=== PATIENT | male | born 1940 ===

== ENCOUNTER 2018-08-16 12:06 | Inpatient (IN) | payer MEDICARE ==
[2018-08-16 12:08] VITALS: BMI 27.4
--- NOTE | 2018-08-16 12:21 | ED PDOC ---
Arrival/HPI - General Chief Complaint: Pacemaker Problem Time Seen by Provider: 08/16/18 12:07 Historian: Patient - History of Present Illness Narrative History of Present Illness (Text): 08/16/18 12:19 Morris Brooks is a 78 year old male, whose past medical history includes hypertension, diabetes, and pacemaker, who presents to the Emergency department accompanied by relative for pacemaker issues. As per patient, he went to his regularly scheduled pacemaker check earlier today and had his pacemaker interrogated, which showed pacemaker is at end-life battery. Patient was advised by his PMD to come to the Emergency department for hospital admission for pacemaker battery change and because of his symptoms of shortness of breathe on exertion. Patient does complain of some shortness of breath/dyspnea on exertion. Patient denies any fever, chills, chest pain, nausea, vomiting, diarrhea, urinary symptoms, back pain, neck pain, headache, dizziness, or any other complaints. PMD: Dr. Morris Perla [facility] Director: Dr. Yulisa Perla Symptom Onset: Gradual Symptom Course: Unchanged Activities at Onset: Light Context: Home Past Medical History - Provider Review Nursing Documentation Reviewed: Yes - Infectious Disease Hx of Infectious Diseases: None - Cardiac Hx Cardiac Arrhythmia: Yes Hx Pacemaker: Yes ([employer]) Other/Comment: Cardiac Cath with stents - Neurological Hx Paralysis: No Hx Transient Ischemic Attacks (TIA): Yes - Hematological/Oncological Hx Blood Transfusions: No Hx Blood Transfusion Reaction: No - Musculoskeletal/Rheumatological Hx Musculoskeletal Disorders: No - Psychiatric Hx Emotional Abuse: No Hx Physical Abuse: No Hx Substance Use: No - Surgical History Hx Cardiac Catheterization: Yes Other/Comment: Pacemaker - Anesthesia Hx Anesthesia Reactions: No Hx Malignant Hyperthermia: No - Suicidal Assessment Feels Threatened In Home Enviroment: No Family/Social History - Physician Review Nursing Documentation Reviewed: Yes Family/Social History: Unknown Family HX Smoking Status: Never Smoked Hx Alcohol Use: No Hx Substance Use: No Allergies/Home Meds Allergies/Adverse Reactions: Allergies No Known Allergies Allergy (Verified 05/11/12 12:14) Home Medications: Home Meds Medication Instructions Recorded Confirmed Aspirin [Ecotrin] 325 mg PO DAILY 05/11/12 05/11/12 Enalapril Maleate [Enalapril] 20 mg PO DAILY 05/11/12 05/11/12 Gemfibrozil 600 mg PO BID 05/11/12 05/11/12 Glyburide 5 mg PO BID 05/11/12 05/11/12 Metformin HCl [Metformin] 1,000 mg PO BID 05/11/12 05/11/12 Metoprolol Tartrate 50 mg PO BID 05/11/12 05/11/12 SITagliptin [Januvia] 50 mg PO DAILY 05/11/12 05/11/12 Review of Systems - Physician Review All systems were reviewed & negative as marked: Yes - Review of Systems Constitutional: Normal. absent: Fevers Eyes: Normal ENT: Normal Respiratory: SOB. absent: Cough Cardiovascular: [place]. absent: Chest Pain Gastrointestinal: Normal. absent: Abdominal Pain, Diarrhea, Nausea, Vomiting Genitourinary Male: Normal. absent: Dysuria, Frequency, Hematuria, Urinary Output Changes Musculoskeletal: Normal. absent: Back Pain, Neck Pain Skin: Normal. absent: Rash Neurological: Normal. absent: Headache Endocrine: Normal Hemo/Lymphatic: Normal Psychiatric: Normal Physical Exam Vital Signs Reviewed: Yes Vital Signs Temp Pulse Resp BP Pulse Ox 08/16/18 12:16 97.7 F 65 19 141/82 99 Temperature: Afebrile Blood Pressure: Normal Pulse: Regular Respiratory Rate: Normal Appearance: Positive for: Well-Appearing, Non-Toxic, Comfortable Pain Distress: None Mental Status: Positive for: Alert and Oriented X 3 - Systems Exam Head: Present: Atraumatic, Normocephalic Pupils: Present: PERRL Extroacular Muscles: Present: EOMI Conjunctiva: Present: Normal Mouth: Present: Moist Mucous Membranes Neck: Present: Normal Range of Motion Respiratory/Chest: Present: Clear to Auscultation, Good Air Exchange. No: Respiratory Distress, Accessory Muscle Use Cardiovascular: Present: Regular Rate and Rhythm, Normal S1, S2. No: Murmurs Abdomen: No: Tenderness, Distention, Peritoneal Signs Back: Present: Normal Inspection Upper Extremity: Present: Normal Inspection. No: Cyanosis, Edema Lower Extremity: Present: Normal Inspection. No: Edema Neurological: Present: GCS=15, CN II-XII Intact, Speech Normal Skin: Present: Warm, Dry, Normal Color. No: Rashes Psychiatric: Present: Alert, Oriented x 3, Normal Insight, Normal Concentration Medical Decision Making ED Course and Treatment: 08/16/18 12:19 Impression: 78 year old male sent in for hospital admission for change of pacemaker battery and Dyspnea of exertion Plan: -- EKG -- Chest X-ray -- Labs, cardiac enzymes, BNP -- Reassess and disposition Prior Visits: Notes and results from previous visits were reviewed. Progress Notes: Reviewed EKG, 100% paced at 65 bpm. 08/16/2018 12:49 Chest X-ray IMPRESSION: No active disease. Dictator: Ishan Flowers MD 08/16/18 13:49 [employer] Identification card information: Morris [address] [place] [id number] Implant Date: Serial # Model # 25 NOV 2008 [id number] 11 FEB 2003 [id number] FEB 2003 [id number] Back of card: I have an Elma JAMESON pacemaker implanted. For medical questions or emergency call: Everardo Sylvester MD [phone] 08/16/18 16:48 Discussed the case with Dr. Bradford who states that there is no stat intervention at this time but he will review the interrogation report. I discussed the report with Caleb from [employer] who states it's reporting recommended replacement. 2.64 volts. 100% paced. He recommends replacement. I discussed plan with Dr. Carey. Also, patient's daughter states that at times he says he see people that are not there. Patient denies SI or HI. Denies Delusions or hallucinations at this time. Consult placed for Dr. Brennan. - Lab Interpretations I have reviewed the lab results: Yes - EKG Interpretation Interpreted by ED Physician: Yes Type: 12 lead EKG - Scribe Statement The provider has reviewed the documentation as recorded by the Scribe Sakshi Arias Provider Scribe Attestation: All medical record entries made by the Scribe were at my direction and personally dictated by me. I have reviewed the chart and agree that the record accurately reflects my personal performance of the history, physical exam, medical decision making, and the department course for this patient. I have also personally directed, reviewed, and agree with the discharge instructions and disposition. Disposition/Present on Arrival - Present on Arrival Any Indicators Present on Arrival: No History of DVT/PE: No History of Uncontrolled Diabetes: No Urinary Catheter: No History of Decub. Ulcer: No History Surgical Site Infection Following: None - Disposition Have Diagnosis and Disposition been Completed?: Yes Diagnosis: Pacemaker malfunction, Dyspnea on exertion Disposition Time: 13:24 Patient Plan: Observation Condition: FAIR
--- NOTE | 2018-08-16 12:53 | RAD ---
Date of service: 08/16/2018 HISTORY: PACEMAKER CHECK COMPARISON: No prior. FINDINGS: LUNGS: No active pulmonary disease. PLEURA: No significant pleural effusion identified, no pneumothorax apparent. CARDIOVASCULAR: No aortic atherosclerotic calcification present. Normal cardiac size. No pulmonary vascular congestion. OSSEOUS STRUCTURES: No significant abnormalities. VISUALIZED UPPER ABDOMEN: Normal. OTHER FINDINGS: Dual lead pacemaker IMPRESSION: No active disease.
[2018-08-16 12:54] LABS: BASO # 0.06 K/mm3 (0.0-2.0); BASO % 1.5 % (0.0-3.0); EOS # 0.1 (0.0-0.7); EOS % 2.9 % (1.5-5.0); GRAN # 2.48 (1.4-6.5); GRAN % 60.2 % (50.0-68.0); HEMOGLOBIN 10.9 g/dL (14.0-18.0); LYMPH # 1.1 (1.2-3.4); LYMPH % 26.2 % (22.0-35.0); MEAN CELL VOLUME 96.4 fl (80.0-105.0); MEAN CORPUSCULAR HEMOGLOBIN 30.4 pg (25.0-35.0); MEAN CORPUSCULAR HGB CONC 31.5 g/dl (31.0-37.0); MEAN PLATELET VOLUME 12.9 fl (7.0-11.0); MONO # 0.4 (0.1-0.6); MONO % 9.2 % (1.0-6.0); RBC 3.59 10^6/uL (3.5-6.1); RED CELL DISTRIBUTION WIDTH 13.9 % (11.5-14.5); WHITE BLOOD COUNT 4.1 10^3/uL (4.5-11.0)
[2018-08-16 12:57] LABS: INR 1.03; PARTIAL THROMBOPLASTIN TIME 28.7 Seconds (25.1-36.5); PROTHROMBIN TIME 11.9 SECONDS (9.4-12.5)
[2018-08-16 13:05] LABS: ALB/GLOB RATIO 1.1 (1.1-1.8); CALCIUM 9.2 mg/dL (8.4-10.5)
[2018-08-16 13:16] LABS: TROPONIN I 0.02 ng/mL
[2018-08-16 13:29] LABS: CK-MB 2.6 ng/mL (0.0-3.6)
--- NOTE | 2018-08-16 15:24 | CARD ---
APPROVED REPORT Date of service: 08/16/2018 EKG Measurement Heart [id number] <Conclusion> Electronic ventricular pacemaker
--- NOTE | 2018-08-16 18:40 | HP ---
DATE OF EXAM: 08/16/2018 HISTORY OF PRESENT ILLNESS: I was called down to the emergency room to admit this young man to the hospital. He is having a pacemaker problem. He is a 78-year-old white male with past medical history that is hypertension, diabetes, and pacemaker, who was accompanied by relative with pacemaker issues. They said it is at the end of the life of his pacemaker and probably needed to be changed. He is having shortness of breath on exertion. Also little bit swollen. His doctor has not come to the hospital. PAST MEDICAL HISTORY: Permanent pacemaker, cardiac cath with stents, and TIAs in the past. FAMILY HISTORY: Unknown family history. SOCIAL HISTORY: Never smoked. No alcohol. No drugs. ALLERGIES: NO KNOWN DRUG ALLERGIES. MEDICATIONS: He is on Ecotrin, enalapril, gemfibrozil, glyburide, metformin, metoprolol, and Januvia. REVIEW OF SYSTEMS: No fevers. No acute vision or hearing changes. There is shortness of breath, but no cough. There is dyspnea on exertion, but no chest pain. No abdominal pain. No nausea, vomiting, constipation, or diarrhea. No problems urinating. No back pain, neck pain or skin rashes appreciated. He does not think he has any issues of the skin. No headache. He is alert and oriented. He has no anxiety. PHYSICAL EXAMINATION: VITAL SIGNS: He has 97.7 temp, 65 pulse, 19 respiratory rate, 141/82 blood pressure, and 99% O2 sat. GENERAL: He is a well-appearing, nontoxic, comfortable, alert and oriented x3 in the emergency room [place] a [place]. HEENT: His head is atraumatic and normocephalic. Extraocular muscles are intact. Pupils are equal and reactive to light and accommodation. Throat is moist. NECK: Supple. HEART: Regular rate. Normal S1 and S2. LUNGS: Decreased breath sounds bilaterally, but clear to auscultation, poor inspiration. ABDOMEN: Soft and nontender. Positive bowel sounds. Mildly obese. No guarding. No rebound. No CVA tenderness. EXTREMITIES: The lower extremities have trace edema. Upper extremities are okay. He can move all 4 extremities well. NEUROLOGIC: GCS is 15. Cranial nerves II through XII grossly intact. Speech is normal. He is alert and oriented x3. SKIN: I could tell is intact. No apparent rashes or ulcers. LYMPHS: Thyroid midline. No palpable appreciable lymphadenopathy. LABORATORY DATA: He had multiple tests done. Chest x-ray was okay. EKG showed electronic pacemaker placement, electronic ventricular pacemaker. He had blood tests done. He has a 139 sodium, potassium 4.6, BUN 28, creatinine 1.4, GFR is 49, sugar is 220, calcium is 9.2, magnesium 2.1, and total bili is 0.5. AST is 87, ALT is 79, little bit high. Lactate dehydrogenase 664. Total creatine kinase is 246. Troponin I is 0.02. BNP was high at 1760. Total protein 7.6. He has 1.03 INR. He has got a 4.1 white count, 10.9 hemoglobin, 34.6 hematocrit with 115 platelets. ASSESSMENT AND PLAN: He was given Lasix 40 mg IV in the emergency room for the elevated BNP and shortness of breath and will be back on his regular medications. I will continue with the Lasix tomorrow. He will have a consult with the science center display builder on telemetry, heart healthy diet, hopefully do well, and given some oxygen. Parviz Carey DO MTDD
[2018-08-17 06:54] VITALS: O2SAT 98
[2018-08-17 07:14] LABS: MEAN CELL VOLUME 96.6 fl (80.0-105.0); MEAN CORPUSCULAR HEMOGLOBIN 30.8 pg (25.0-35.0); MEAN CORPUSCULAR HGB CONC 31.9 g/dl (31.0-37.0); MEAN PLATELET VOLUME 12.6 fl (7.0-11.0); RBC 3.57 10^6/uL (3.5-6.1)
[2018-08-17 07:36] LABS: ALB/GLOB RATIO 1.1 (1.1-1.8); ALBUMIN 3.8 g/dL (3.0-4.8); CALCIUM 9.2 mg/dL (8.4-10.5)
[2018-08-17] MEDS: Aspirin 325 mg EC Tablets PO SCH (10:34)
--- NOTE | 2018-08-17 10:51 | PN ---
DATE: 08/17/2018 SUBJECTIVE: He is resting comfortably in bed this morning. He slept well. He is on Ecotrin, Glucophage, Lasix, Lopid, Lopressor and Zestril. He has an appetite. The concern is his pacemaker. He is in observation status. He had some shortness of breath and dyspnea on exertion before he came to the hospital, since he has been here he is resting in bed and comfortable. PHYSICAL EXAMINATION: VITAL SIGNS: He has 98.2 temperature, 76 pulse, 110/64 blood pressure, 22 respiratory rate and 98% O2 sat on room air. HEENT: Head is atraumatic and normocephalic. HEART: Regular rate. LUNGS: Decreased breath sounds, but clear. ABDOMEN: Soft and obese. EXTREMITIES: No edema. LABORATORY DATA: He has a 5 white count, 11 hemoglobin, 34.5 hematocrit with 118 platelets. An 1.03 INR. A 141 sodium, potassium 4.1, BUN is 29, creatinine 1.5, GFR is 45, sugar is 86, calcium is 9.2, total bili is 0.4, AST is 45, ALT is 62 and alk phos 85. Troponin I was 0.02. Total protein 7.4. I am waiting for Cardiology to come and see him to make a decision on the permanent pacemaker issue. Hopefully, will have a decision this morning when Dr. Bradford will either do a procedure or we will discharge him. Awaiting for Dr. Bradford. He is here with permanent pacemaker issues and dyspnea on exertion and little bit of CHF. I believe the IV Lasix is really help that. Parviz Carey DO
--- NOTE | 2018-08-17 12:31 | CP.PCM.PCO ---
Physician Communication Note - Physician Communication Note Physician Communication Note: patient for pacemaker change
--- NOTE | 2018-08-17 14:10 | CON ---
DATE: 08/17/2018 CARDIOLOGY CONSULTATION HISTORY: The patient is a 78-year-old male, who was admitted to the hospital because of report by his primary care doctor that the patient had end of life battery in his pacemaker. The patient is fully pacemaker dependent. PAST MEDICAL HISTORY: The patient's past medical history is predominately followed at [facility] and he has a history of hypertension, diabetes mellitus. His last stress test, which was performed in 07/2016 was reported to be abnormal with an ejection fraction of 60%. However, the patient is chest pain free. His cardiac risk factors includes diabetes mellitus, hypertension. SOCIAL HISTORY: The patient does not smoke. REVIEW OF SYSTEMS: Fourteen-point review of systems was free of cardiac symptoms. PHYSICAL EXAMINATION: VITAL SIGNS: Blood pressure is 126/58, heart rate is paced in the 60s. NECK: Negative JVD. LUNGS: Without rales. HEART: With S1, S2. EXTREMITIES: Without edema. LABORATORY DATA: Hemoglobin is 11. Coagulopathy is INR is 1, glucose is 217. IMPRESSION: 1. End of life battery for his pacemaker. 2. No hemodynamic sequelae with the pacemaker pacing. 3. Diabetes mellitus. 4. Hypertension. 5. Obesity. Given these findings, there is no availability by desk interviewer available to perform battery change today or tomorrow at [facility]. I have made arrangements to transfer the patient to [facility], where Dr. Hannon will arrange for a pacemaker check, pacemaker battery change tomorrow at [facility]. I have discussed this with Dr. Perla, who is the patient's primary care administration specialist. Surinder Bradford MD
[2018-08-17] MEDS: Insulin Lispro (humaLOG) MEDIUM Coverage SC SCH (22:00)
[2018-08-18] MEDS: Insulin Lispro (humaLOG) MEDIUM Coverage SC SCH ×2 (08:15→12:32)
[2018-08-18] MEDS: Aspirin 325 mg EC Tablets PO SCH (09:47)
--- NOTE | 2018-08-18 10:38 | PN ---
DATE: 08/18/2018 CARDIOLOGY FOLLOWUP SUBJECTIVE: The patient is without complaints. PHYSICAL EXAMINATION: VITAL SIGNS: Blood pressure 125/65, heart rate is paced in the 60s. NECK: Negative JVD. LUNGS: Without rales. HEART: S1, S2. EXTREMITIES: Without edema. LABORATORY DATA: Hemoglobin is 11. Chemistries, glucose is 104. IMPRESSION: 1. Pacemaker battery end of life. 2. Diabetes mellitus. 3. Hypertension. 4. Hypercholesterolemia. 5. Coronary artery disease. Given these findings, the patient is being transferred to [facility] today for battery replacement. In review of his records, I have given the patient a follow-up appointment to consider cardiac catheterization given his abnormal stress test one month ago. Surinder Bradford MD
--- NOTE | 2018-08-18 11:39 | DS ---
HISTORY OF PRESENT ILLNESS: He is having a pacemaker issue. He is going to be able to be transferred over to [facility] this morning for his primary care doctor plus the doctor that will interrogate and possibly change to battery to do something with his pacemaker at [facility]. He is comfortable, he understands the plan. PHYSICAL EXAMINATION: VITAL SIGNS: He has 97.9 temperature, 64 pulse, 125/65 blood pressure, 18 respiratory rate. HEENT: Head is atraumatic and normocephalic. HEART: Regular rate. LUNGS: Decreased breath sounds. ABDOMEN: Soft. EXTREMITIES: No edema. LABORATORY DATA: He has 5 white count, 11 hemoglobin, 34.5 hematocrit, and 118 platelets. He has 1.03 INR. Last blood sugar was 104, 141 sodium, potassium 4.1, his BUN is 29, creatinine is 1.5, sugar is 45, 94 sugar. 9.2 calcium, 0.4 total bili. AST is 45, ALT is 62, alkaline phosphatase 85, total protein 7.4. ASSESSMENT AND PLAN: He is having a pacemaker issue. He is being sent over to [facility] for today for interrogation and treatment. He had end of life of battery of the pacemaker, diabetes, hypertension. He will be followed there and is being transferred to [facility]. Parviz Carey DO
[2018-08-18 12:11] VITALS: BP 116/62; PULSE 64; RESP 20; TEMP 97
== END 2018-08-18 13:59 | disposition short-term general hospital (02) | DRG 316 ==
LOC: ED 12:06 → ERH 13:24 → 2RSO 08-17 00:30 → OBSVTOIN 08-17 14:43
PROVIDERS: ADMIT Family Medicine; ATTEND Family Medicine
DX: Z45.010 Encounter for checking and testing of cardiac pacemaker pulse generator [battery] (principal); I10 Essential (primary) hypertension; E11.9 Type 2 diabetes mellitus without complications; R06.02 Shortness of breath; I25.10 Atherosclerotic heart disease of native coronary artery without angina pectoris; R06.09 Other forms of dyspnea; E78.00 Pure hypercholesterolemia, unspecified; E66.9 Obesity, unspecified; Z68.28 Body mass index [BMI] 28.0-28.9, adult; Z86.73 Personal history of transient ischemic attack (TIA), and cerebral infarction without residual deficits; Z79.82 Long term (current) use of aspirin; Z79.84 Long term (current) use of oral hypoglycemic drugs; Z95.5 Presence of coronary angioplasty implant and graft

== ENCOUNTER 2018-08-16 13:33 | Outpatient (CLI) | payer MEDICARE | END 2018-08-16 13:34 | disposition home or self-care (01) | LOC: CARDIO 13:33 ==